=== PATIENT | female | born 1995 | race Two or more races ===

== ENCOUNTER 2019-09-09 19:23 | Inpatient (IN) | payer OTHER ==
[~2019-09-09] VITALS: Ht 170.2 cm; Wt 70.8 kg
[2019-09-09 19:55] VITALS: BP 119/79
[2019-09-09] MEDS ORDERED: OXYTOCIN 30 UNITS/LACT RINGERS 500 ML IV ONE (20:25)
[2019-09-09] MEDS ORDERED: RINGERS SOLUTION,LACTATED 1,000 ML IV ONE (20:25)
[2019-09-09] MEDS ORDERED: LIDOCAINE/PF 1% 30 ML VIAL INJ PRN (20:30)
[2019-09-09] MEDS ORDERED: CITRIC ACID/SODIUM CITRATE 30 ML SOLUTION UDCUP PO PRN (20:30)
[2019-09-09] MEDS ORDERED: METOCLOPRAMIDE HCL 5 MG/ML 2 ML VIAL IVP PRN (20:30)
[2019-09-09] MEDS ORDERED: MISOPROSTOL 25 MCG TABLET PO ONE (21:00)
[2019-09-09 21:12] LABS: BASOPHILS % (AUTO) 0.4 % (0.0-2.0); EOSINOPHILS % (AUTO) 1.7 % (1.0-6.0); HEMATOCRIT 33.4 % (36-46); LYMPHOCYTES # (AUTO) 1.8 K/uL (1.0-4.8); LYMPHOCYTES % (AUTO) 22.6 % (22.0-44.0); MEAN CORPUSCULAR HEMOGLOBIN 26.1 pg (26.0-34.0); MEAN CORPUSCULAR HGB CONC 32.8 G/dL (31.0-37.0); MEAN CORPUSCULAR VOLUME 80 fL (80-100); MONOCYTES # (AUTO) 0.5 K/uL (0.1-1.0); MONOCYTES % (AUTO) 6.3 % (2.0-9.0); NEUTROPHILS # (AUTO) 5.6 K/uL (1.8-7.7); PLATELET COUNT (AUTO)-OB 247 K/uL (150-450); RED BLOOD CELL COUNT(AUTO) 4.19 MIL/uL (4.00-5.20); RED CELL DISTRIBUTION WIDTH 14.7 % (11.5-14.5)
[2019-09-09] MEDS ORDERED: PREN-217 PO (21:52)
[2019-09-09] MEDS ORDERED: OXYTOCIN 30 UNITS/LACT RINGERS 500 ML IV PRN (23:00)
[2019-09-09] MEDS ORDERED: FentaNYL CITRATE-PF 100 MCG/2 ML VIAL IVP PRN (23:00)
[2019-09-09] MEDS: RINGERS SOLUTION,LACTATED 1,000 ML IV SCH (23:10)
[2019-09-10] MEDS ORDERED: ROPIVACAINE HCL/PF 0.2% 100 ML ED ONE (00:47)
[2019-09-10] MEDS ORDERED: ROPIVACAINE HCL/PF 0.2% 100 ML ED PRN (01:24)
[2019-09-10] MEDS ORDERED: DiphenhydrAMINE HCL 50 MG/ML VIAL IVP PRN (01:30)
[2019-09-10] MEDS ORDERED: NALBUPHINE HCL 10 MG/ML VIAL IVP PRN (01:30)
[2019-09-10] MEDS ORDERED: ONDANSETRON HCL 4 MG/2 ML VIAL IVP PRN (01:30)
[2019-09-10] MEDS: RINGERS SOLUTION,LACTATED 1,000 ML IV SCH (03:03)
[2019-09-10] MEDS ORDERED: OXYTOCIN 30 UNITS/LACT RINGERS 500 ML IV ONE (06:06)
[2019-09-10] MEDS ORDERED: LIDOCAINE/PF 1% 30 ML VIAL INJ PRN (06:15)
[2019-09-10] MEDS ORDERED: GLYCERIN/WITCH HAZEL LEAF 40 PADS JAR TP PRN (06:15)
[2019-09-10] MEDS ORDERED: LANOLIN 7 GM OINTMENT TP PRN (06:15)
[2019-09-10] MEDS ORDERED: BENZOCAINE 20%/MENTHOL 56 GM SPRAY CANISTER TP PRN (06:15)
[2019-09-10] MEDS ORDERED: OxyCODONE HCL/ACETAMINOPHEN 5-325 MG TABLET PO PRN ×2 (06:15)
[2019-09-10] MEDS: MAGNESIUM HYDROXIDE SUSPENSION 30 ML UDCUP PO PRN ×2 (07:23→21:17)
[2019-09-10] MEDS: IBUPROFEN 800 MG TABLET PO PRN (07:24)
[2019-09-11] MEDS: IBUPROFEN 800 MG TABLET PO PRN (07:35)
[2019-09-11 07:50] LABS: BASOPHILS % (AUTO) 0.4 % (0.0-2.0); EOSINOPHILS % (AUTO) 1.5 % (1.0-6.0); HEMOGLOBIN 10.5 g/dL (12.0-16.0); LYMPHOCYTES # (AUTO) 1.8 K/uL (1.0-4.8); LYMPHOCYTES % (AUTO) 19.4 % (22.0-44.0); MEAN CORPUSCULAR HEMOGLOBIN 25.5 pg (26.0-34.0); MEAN CORPUSCULAR HGB CONC 31.8 G/dL (31.0-37.0); MEAN CORPUSCULAR VOLUME 80 fL (80-100); MONOCYTES # (AUTO) 0.5 K/uL (0.1-1.0); MONOCYTES % (AUTO) 5.3 % (2.0-9.0); NEUTROPHILS # (AUTO) 6.7 K/uL (1.8-7.7); NEUTROPHILS % (AUTO) 73.4 % (40.0-70.0); PLATELET COUNT (AUTO)-OB 225 K/uL (150-450); RED BLOOD CELL COUNT(AUTO) 4.11 MIL/uL (4.00-5.20); RED CELL DISTRIBUTION WIDTH 14.6 % (11.5-14.5)
[2019-09-11] MEDS ORDERED: IBUP-2071 PO (11:49)
[2019-09-11] MEDS ORDERED: DOCU-275 PO (11:49)
[2019-09-11] MEDS ORDERED: FERR-89 PO (11:50)
== END 2019-09-11 12:55 | disposition home or self-care (01) | DRG 560 ==
LOC: OBSVTOIN 19:33 → 4S 19:33
PROVIDERS: ADMIT Obstetrics & Gynecology Obstetrics; ATTEND Obstetrics & Gynecology Obstetrics
PROC: 10E0XZZ Delivery of Products of Conception, External Approach (ICD-10-PCS; principal; 2019-09-10)
PROC: 0HQ9XZZ Repair Perineum Skin, External Approach (ICD-10-PCS; 2019-09-10)
PROC: 3E0R3BZ Introduction of Anesthetic Agent into Spinal Canal, Percutaneous Approach (ICD-10-PCS; 2019-09-10)
PROC: 00HU33Z Insertion of Infusion Device into Spinal Canal, Percutaneous Approach (ICD-10-PCS; 2019-09-10)
DX: O70.0 First degree perineal laceration during delivery (principal); Z03.818 Encounter for observation for suspected exposure to other biological agents ruled out; Z37.0 Single live birth; Z3A.39 39 weeks gestation of pregnancy
CPT/HCPCS: 86850; 86900; 86901; J2590; J2795; J7120